=== PATIENT | male | born 1970 | race Caucasian/White ===

== ENCOUNTER → 2023-09-01 07:47 | Outpatient (REF) | payer OTHER, SELFPAY ==
[2023-09-01 08:04] VITALS: BP 126/80; BP_SYST 98
[2023-09-01 09:03] VITALS: BP 97/65
[2023-09-01 10:12] LABS: Body Fluid Mononuclear 86.8 %; Body Fluid Polymorphonuclear 13.2 %; Body Fluid WBC 303 /CUMM
[2023-09-01 10:16] LABS: Body Fluid Second Tech HB
== END ==
LOC: RADI 07:47
PROVIDERS: ATTENDING PHYSICIAN Internal Medicine Transplant Hepatology; FAMILY PHYSICIAN Family Medicine
DX: R18.8 Other ascites (principal)
CPT/HCPCS: 49083; 87015; 87070; 87205; 89051

== ENCOUNTER → 2023-12-07 09:11 | Outpatient (REF) | payer OTHER, SELFPAY ==
[2023-12-07 09:22] VITALS: BP 110/90; BP_SYST 103
[2023-12-07 10:00] VITALS: BP 107/79; BP_SYST 91
[2023-12-07 10:10] VITALS: BP 107/79
[2023-12-07 14:01] LABS: Body Fluid Mononuclear 56.1 %; Body Fluid Polymorphonuclear 43.9 %; Body Fluid WBC 1846 /CUMM
[2023-12-07 14:08] LABS: Body Fluid Second Tech HB
== END ==
LOC: RADI 09:11
PROVIDERS: ATTENDING PHYSICIAN Internal Medicine Transplant Hepatology; FAMILY PHYSICIAN Family Medicine
DX: R18.8 Other ascites (principal)
CPT/HCPCS: 49083; 87015; 87070; 87205; 89051

== ENCOUNTER → 2023-12-29 08:31 | Outpatient (REF) | payer OTHER, SELFPAY ==
[2023-12-29 08:49] VITALS: BP 116/77; BP_SYST 104
[2023-12-29 09:28] VITALS: BP 116/70
[2023-12-29 09:46] LABS: Body Fluid Mononuclear 91.9 %; Body Fluid Polymorphonuclear 8.1 %; Body Fluid WBC 902 /CUMM
[2023-12-29 09:47] LABS: Body Fluid Second Tech AMA
== END ==
LOC: RADI 08:31
PROVIDERS: ATTENDING PHYSICIAN Internal Medicine Transplant Hepatology
DX: R18.8 Other ascites (principal)
CPT/HCPCS: 49083; 87015; 87070; 87205; 89051

== ENCOUNTER → 2024-09-12 07:40 | Outpatient (REF) | payer OTHER, SELFPAY ==
[2024-09-12 08:00] VITALS: BP 118/71; BP_SYST 98
[2024-09-12 09:48] LABS: Body Fluid Mononuclear 87.5 %; Body Fluid Polymorphonuclear 12.5 %; Body Fluid WBC 360 /CUMM
[2024-09-12 10:00] LABS: Body Fluid Second Tech CF
== END ==
LOC: RADI 07:40
PROVIDERS: ATTENDING PHYSICIAN Internal Medicine Transplant Hepatology; FAMILY PHYSICIAN Family Medicine
DX: R18.8 Other ascites (principal)
CPT/HCPCS: 49083; 89051

== ENCOUNTER → 2024-12-05 09:00 | Outpatient (REF) | payer OTHER, SELFPAY ==
[2024-12-05 09:12] VITALS: BP 138/92; BP_SYST 100
[2024-12-05 10:05] VITALS: BP 116/90; BP_SYST 97
[2024-12-05 10:33] LABS: Body Fluid Mononuclear 86.4 %; Body Fluid Polymorphonuclear 13.6 %; Body Fluid WBC 242 /CUMM
[2024-12-05 11:03] LABS: Body Fluid Second Tech CMB
== END ==
LOC: RADI 09:00
PROVIDERS: ATTENDING PHYSICIAN Internal Medicine Transplant Hepatology; FAMILY PHYSICIAN Family Medicine
DX: R18.8 Other ascites (principal)
CPT/HCPCS: 49083; 89051

== ENCOUNTER → 2025-01-01 06:49 | Outpatient (REF) | payer OTHER, SELFPAY ==
[2025-01-01 07:10] VITALS: BP 126/73; BP_SYST 85
[2025-01-01 07:55] VITALS: BP 117/72; BP_SYST 82
[2025-01-01 08:00] VITALS: BP 117/72
[2025-01-01 09:06] LABS: Body Fluid Second Tech CMB
== END ==
LOC: RADI 06:49
PROVIDERS: ATTENDING PHYSICIAN Internal Medicine Transplant Hepatology; FAMILY PHYSICIAN Family Medicine
DX: R18.8 Other ascites (principal)
CPT/HCPCS: 49083; 87015; 87070; 87205; 89051

== ENCOUNTER → 2025-01-25 07:56 | Outpatient (REF) | payer OTHER, SELFPAY ==
[2025-01-25 08:10] VITALS: BP 127/75; BP_SYST 88
[2025-01-25 08:55] VITALS: BP 125/78
[2025-01-25 08:59] VITALS: BP 127/75; BP_SYST 88
[2025-01-25 09:40] LABS: Body Fluid Second Tech EM
== END ==
LOC: RADI 07:56
PROVIDERS: ATTENDING PHYSICIAN Internal Medicine Transplant Hepatology; FAMILY PHYSICIAN Family Medicine
DX: R18.8 Other ascites (principal)
CPT/HCPCS: 49083; 87015; 87070; 87205; 89051

== ENCOUNTER → 2025-02-15 07:13 | Outpatient (REF) | payer OTHER, SELFPAY ==
[2025-02-15 07:47] VITALS: BP 120/82; BP_SYST 96
[2025-02-15 08:45] VITALS: BP 104/78
[2025-02-15 10:45] LABS: Body Fluid Second Tech EF
== END ==
LOC: RADI 07:13
PROVIDERS: ATTENDING PHYSICIAN Internal Medicine Transplant Hepatology
DX: R18.8 Other ascites (principal)
CPT/HCPCS: 49083; 87015; 87070; 87205; 89051

== ENCOUNTER 2025-02-15 09:03 | Outpatient (RCR) | payer OTHER, SELFPAY ==
[2025-02-15] MEDS: FLEXBUMIN 100 IV (09:19)
[2025-02-15 09:20] VITALS: BP 111/74
[2025-02-15] MEDS: FLEXBUMIN 50 IV (10:57)
[2025-02-15 11:05] VITALS: BP 100/61
[2025-02-15 11:47] VITALS: BP 110/64
== END 2025-03-03 23:59 | disposition home or self-care (01) ==
LOC: OID 09:03
PROVIDERS: ATTENDING PHYSICIAN Internal Medicine Transplant Hepatology
DX: K70.31 Alcoholic cirrhosis of liver with ascites (principal)
CPT/HCPCS: 96365; 96366; P9047